=== PATIENT | female | born 1960 | race Caucasian/White ===

== ENCOUNTER → 2017-05-31 | Outpatient (CLI) | payer BC ==
[~2017-05-31] MED LIST: ACET-1966 PO; AMOX-559 PO; CIPR-214 PO; ONDA4TAB97 PO; OXYC-865 PO
--- NOTE | 2017-06-03 09:57 | RADIOLOGY IMAGING REPORT ---
FACILITY: [facility] [place] PATIENT NAME: AZUL BROWN : [id number] MR: [id number] V: [id number] EXAM DATE: ORDERING PHYSICIAN: KEKE DYSON TECHNOLOGIST: Sabina Murphy PROCEDURE:BILATERAL DIGITAL SCREENING MAMMOGRAM WITH CAD ASSISTED INTERPRETATION AND 3D BREAST TOMOSYNTHESIS. COMPARISON:Prior mammograms dated 05/18/16, 03/04/14, 11/20/11 and 10/18/10. INDICATIONS:SCREENING FINDINGS: Mildly heterogeneous fibroglandular tissue is seen throughout the breasts. The parenchymal pattern has remained stable when allowing for difference in mammographic technique and patient positioning. There is no evidence of malignant appearing mass, malignant appearing calcification or other secondary sign of malignancy in either breast. DIAGNOSTIC CATEGORY 1--NEGATIVE. RECOMMENDATIONS: ROUTINE MAMMOGRAM AND CLINICAL EVALUATION. IMPRESSION: BI-RADS 1: No significant abnormality seen. Images were reviewed with R2CAD and 3D breast tomosynthesis. Dictated by: Lina Schaffer M.D. on 05/31/2017 at 14:37 Transcribed by: CAESAR on 06/02/2017 at 20:02 Approved by: Lina Schaffer M.D. on 06/03/2017 at 9:57 [facility]
== END ==
LOC: MAMO 01:10
PROVIDERS: ATTEND Nurse Practitioner Family
DX: Z12.31 Encounter for screening mammogram for malignant neoplasm of breast (principal)
CPT/HCPCS: 77063; 77067

== ENCOUNTER → 2017-11-11 | Outpatient (CLI) | payer BC ==
[~2017-11-11] MED LIST changes: +BUPR-472 PO; +ETON68IM SQ
--- NOTE | 2017-11-11 15:58 | RADIOLOGY IMAGING REPORT ---
FACILITY: [facility] [place] PATIENT NAME: Jennifer Espino : 1960 MR: [id number] V: [id number] EXAM DATE: ORDERING PHYSICIAN: KEKE DYSON TECHNOLOGIST: [place] [facility] [place] Patient: Jennifer Espino : 1960 Visit/Account:[id number] Date of Sevice: 11/11/2017 GALLBLADDER HISTORY: Right upper quadrant pain COMPARISON: None. FINDINGS: Gallbladder: The gallbladder wall is extremely thickened at 10.6 mm with a small amount of pericholec ystic fluid. Also noted is echogenic structure within the gallbladder although no acoustic shadowing . This could represent a nonshadowing stone versus a gallbladder polyp or other mass. There does ap pear to be some vascular flow in this echogenic structure Liver: Negative. Common duct: Normal, 2.3 mm diameter. Pancreas: Partially obscured by bowel, visualized aspects unremarkable. Right kidney: Right kidney appears unremarkable measuring 9.2 cm in length Upper abdominal aorta and IVC: Patent. Ascites: None visualized. IMPRESSION: A bladder wall to extremely thickened at 10.6 mm with small amount of pericholecystic fluid. These f inds are concerning for acute cholecystitis. There is an echogenic nonshadowing structure within the gallbladder which could represent a nonshadow ing stone or possibly a gallbladder mass. There does appear to be some vascular flow No evidence of biliary ductal dilatation Report Dictated By: Lina Schaffer MD at 11/11/2017 3:50 PM Report E-Signed By: Lina Schaffer MD at 11/11/2017 3:54 PM WSN:[email or web address]
== END ==
LOC: US 13:52
PROVIDERS: ATTEND Nurse Practitioner Family
DX: K81.9 Cholecystitis, unspecified (principal)
CPT/HCPCS: 76705

== ENCOUNTER → 2017-11-12 | Outpatient (CLI) | payer BC ==
[2017-11-12 15:54] LABS: PLATELET COUNT, AUTOMATED 236 K/uL (150-450)
== END ==
LOC: LAB 15:39
PROVIDERS: ATTEND Surgery
DX: K82.8 Other specified diseases of gallbladder (principal); R10.11 Right upper quadrant pain
CPT/HCPCS: 36415; 82040; 82247; 82248; 82310; 82374; 82435; 82565; 82947; 83690; 84075; 84132; 84155; 84295; 84450; 84460; 84520; 85025

== ENCOUNTER 2017-11-14 13:04 | Outpatient (RCR) | payer BC ==
[~2017-11-14 13:04] MED LIST changes: +GADOBENATE 529MG/1ML 15ML VIAL IVP ONE; +NS 0.9% 25 ML BAG 50 ML ONE
--- NOTE | 2017-11-15 10:59 | RADIOLOGY IMAGING REPORT ---
FACILITY: [facility] PATIENT NAME: Jennifer Espino : 1960 MR: [id number] V: [id number] EXAM DATE: ORDERING PHYSICIAN: CHENG CUNNINGHAM TECHNOLOGIST: Location: [facility] [place] Patient: Jennifer Espino : 1960 Visit/Account:[id number] Date of Sevice: 11/14/2017 ADDENDUM #1 The moderately distended fluid-filled bowel in the upper abdomen right-sided the abdomen are in fact the duodenum, bulb and second portion and not colon. Report Dictated By: Lina Schaffer MD at 11/15/2017 11:30 AM Report E-Signed By: Lina Schaffer MD at 11/15/2017 11:36 AM ORIGINAL REPORT ABDOMEN W W/O CONTRAST HISTORY: Right upper quadrant pain, questionable gallbladder mass ADDITIONAL HISTORY: The patient first underwent and MRCP with and without contrast on November 14, 2017. The patient returned for repeat study on November 15, 2017 due to extensive motion artifact on the orig inal examination. TECHNIQUE: TECHNIQUE: Multiplanar multisequence magnetic resonance imaging of the abdomen without a nd with intravenous contrast. CONTRAST: 15 mL of MultiHance intravenously on November 14, 2017 and 50 millers of MultiHance intravenou sly on November 15, 2017 COMPARISON: Gallbladder ultrasound November 11, 2017 FINDINGS: Visualized lung bases: Grossly unremarkable. Liver: There is a tiny cyst medial aspect right lobe Gallbladder: The gallbladder is contracted despite n.p.o. status.. No abnormal enhancement is identi fied within the gallbladder. Bile ducts: Nondistended and unremarkable. Spleen: Negative. Adrenal glands: Negative. Pancreas: Negative. Kidneys: Bilateral renal cysts Vessels/spaces/nodes: No bulky adenopathy or ascities. Visualized GI: The cecum, ascending colon and transverse colon appear moderately distended with fluid Bones/soft tissues: Levoconvex scoliosis of the lumbar spine. Tiny umbilical hernia containing fat IMPRESSION: The gallbladder is contracted despite the patient's n.p.o. status. No abnormal enhancement is identi fied within the gallbladder. Small bilateral renal cysts and hepatic cyst The cecum, ascending colon and transverse colon appear moderately distended with fluid likely related to liquid stool. Report Dictated By: Lina Schaffer MD at 11/15/2017 10:36 AM Report E-Signed By: Lina Schaffer MD at 11/15/2017 10:54 AM WSN:[email or web address]
[2017-11-15] MEDS ORDERED: PANT40TA65 PO (13:26)
== END 2017-11-14 18:00 | disposition home or self-care (01) ==
LOC: MRI 13:04
PROVIDERS: ATTEND Surgery
DX: N28.1 Cyst of kidney, acquired (principal); K76.89 Other specified diseases of liver
CPT/HCPCS: 74183; A9577

== ENCOUNTER → 2017-11-18 | Outpatient (CLI) | payer BC ==
[~2017-11-18] MED LIST changes: +BARIUM SULFATE 176 GM BTL PO ONE; +BARIUM SULFATE 340 GM POWD ONE; -GADOBENATE 529MG/1ML 15ML VIAL IVP ONE; -NS 0.9% 25 ML BAG 50 ML ONE; +PANT40TA65 PO
--- NOTE | 2017-11-18 13:15 | RADIOLOGY IMAGING REPORT ---
FACILITY: [facility] PATIENT NAME: Jennifer Espino : 1960 MR: [id number] V: [id number] EXAM DATE: ORDERING PHYSICIAN: CHENG CUNNINGHAM TECHNOLOGIST: Location: [facility] [place] Patient: Jennifer Espino : 1960 Visit/Account:[id number] Date of Sevice: 11/18/2017 Exam type: UPPER GI SERIES W/O AIR History: Nausea vomiting diarrhea intermittently upper abdomen pain, dilated duodenum Comparison: MR the abdomen November 14, 2017. Findings: Double contrast upper GI series was performed with thick and thin barium and air contrast. There is no demonstration of a hiatal hernia. A moderate amount of gastroesophageal reflux was observed altho ugh no evidence of mucosal erosion or esophageal narrowing. The stomach appeared grossly unremarkable. Duodenal bulb was moderately distended with barium. The second portion the duodenum was very distended with contrast. At the junctions of the second and thi rd portions of the duodenum there appear to be a partial obstruction. This is best seen on CT are im ages 13 and 15. There appear to be high-grade narrowing and beaking of the contrast at this junction . The patient was placed in a supine position there was passage of barium into the proximal jejunum which did not appear dilated. Throughout the examination however second portion the duodenum appeare d very distended with barium. Incidentally noted is a diverticulum extending from the third portion of the duodenum The fluoroscopy dose area product was 1581.98 micro-Bowers per meter squared IMPRESSION: 1. Moderate amount of gastroesophageal reflux although no evidence of mucosal erosion or esophageal narrowing The duodenal bulb is moderately distended with barium. The second portion duodenum was very distende d with contrast. At the junction of the second third portions the duodenum there appear to be a part ial obstruction with beaking of the contrast. Some barium did eventually pass into the nondilated je junum. The second portion of the duodenum appears extremely distended throughout the examination. . Report Dictated By: Lina Schaffer MD at 11/18/2017 12:58 PM Report E-Signed By: Lina Schaffer MD at 11/18/2017 1:11 PM WSN:[email or web address]
== END ==
LOC: RAD 07:09
PROVIDERS: ATTEND Surgery
DX: K21.9 Gastro-esophageal reflux disease without esophagitis (principal); K59.8 Other specified functional intestinal disorders
CPT/HCPCS: 74240

== ENCOUNTER 2017-11-21 01:56 | Day surgery (SDC) | payer BC ==
[~2017-11-21] VITALS: Ht 175.3 cm; Wt 79.8 kg
[~2017-11-21 01:56] MED LIST changes: -BARIUM SULFATE 176 GM BTL PO ONE; -BARIUM SULFATE 340 GM POWD ONE
[2017-11-21] MEDS ORDERED: PROPOFOL EMUL(*) 10MG/ML 20 ML 20 ML ONE ×2 (09:14→11:13)
[2017-11-21 09:20] VITALS: BP 145/85
[2017-11-21] MEDS ORDERED: LIDOCAINE/SOD BICARB 8.4% SYR ID ONE (09:45)
[2017-11-21] MEDS ORDERED: NORMOSOL R SOLN(*) 1000 ML BAG 1,000 ML IV PRN (09:45)
[2017-11-21 11:49] VITALS: BP 126/74
--- NOTE | 2017-11-21 12:10 | Short(Outpt) Discharge Summary ---
Discharge Summary Reason for Hosp/Final Diag: (1) Dilation of duodenum Status: Acute Hospital Course & Plan: EGD with biopsies completed without problems. Departure Discharge to: Home, Self Care Discharge Instructions Home Meds Active Scripts Pantoprazole Sodium (PANTOPRAZOLE SODIUM) 40 Mg Tablet.dr, 1 TAB PO DAILY, #30 CAP 0 Refills Prov:CHENG CUNNINGHAM MD 11/15/17 Discontinued Reported Medications Etonogestrel (NEXPLANON) 68 Mg Implant, 68 MG SQ DIRECTED, IMPLANT 11/13/17 Bupropion Hcl (WELLBUTRIN XL) 150 Mg Tab.er.24h, 150 MG PO QDAY, TAB 11/13/17 Follow up Referrals: General Surgery - 11/26/17 @ Surgery, General with Cheng Cunningham Md You have a follow up appointment scheduled with Dr. Cunningham on 11/26/17, at 10:15am. Diet: Regular Activity: As Tolerated Special Instructions: Don't eat or drink anything after midnight tonight so that it might be possible to get a CT of your abdomen and HIDA scan tomorrow. CHENG CUNNINGHAM MD Nov 21, 2017 12:10
[2017-11-21 12:15] VITALS: BP 142/75
--- NOTE | 2017-11-21 14:48 | ULLRICH EGD ---
EVENT DATE: November 21, 2017 ENDOSCOPIST: Scott Price MD ANESTHESIOLOGIST: Evelio Yanez MD ANESTHESIA: TIVA MANAGER CARD: Staff PREPROCEDURAL DIAGNOSIS Dilated duodenum on upper gastrointestinal study with bird beak appearance of the junction of the second and third portions of the duodenum. POSTPROCEDURAL DIAGNOSIS Duodenal diverticulum. PROCEDURE PERFORMED Esophagogastroduodenoscopy with biopsies. COMPLICATIONS None. CONDITION Stable. BLOOD LOSS None. FINDINGS This patient has a very dilated duodenal bulb and second portion of her duodenum. I did not see a bird beak lesion or any neoplastic lesion, but she has a very large duodenal diverticulum at the junction of her second portion of the duodenum and her third portion of her duodenum. There were no ulcers. She did have some mild inflammation in her lower esophagus at the GE junction with some fingers of gastric mucosa extending into the esophagus, and so these were biopsied to rule out Wagner esophagus. INDICATIONS This is a 57-year-old female who was referred to my office after she was having a severe episode of right upper quadrant abdominal pain. A right upper quadrant ultrasound revealed that her gallbladder looked very thickened with a 10 cm thick wall, and there looked to be an intraluminal mass that had some internal blood flow. She was asymptomatic when I saw her in the office, which was just the day after these symptoms occurred which had lasted about four to six hours, and so I ordered an MRCP to get a better idea of her biliary tract. On the MRCP, her duodenum was markedly dilated, and the gallbladder was squished off to the side, but there was no obvious mass or inflammation in the gallbladder. Interestingly, her labs were normal including LFTs and white blood cell count. I then got an upper GI study with barium which revealed a markedly dilated D1 and D2 with a bird beak configuration at D2 and D3 and normal caliber D3 and D4. It took a while for contrast to get into the third portion of the duodenum. With this information, I consented her for an EGD to evaluate this area. DESCRIPTION OF PROCEDURE The patient was brought to the operating room and placed in the left lateral decubitus position on the gurney, and TIVA was administered after a bite block was inserted into her mouth. The endoscope was obtained and tested to ensure it was completely functional and inserted into her mouth through the bite block. Her vocal cords and arytenoids were inspected and were normal. The scope was advanced without problems into her esophagus and advanced all the way through to the junction of the second and third portions of the duodenum. Because of the size of the first and second portions, I could not get the scope to feed into the third portion of the duodenum. I then inspected every part that I could. I did see what appeared to be a duodenal diverticulum coming off the lateral portion of the junction of the second portion and third portion of the duodenum. I could not get into the diverticulum with this scope. I then slowly withdrew the scope. I looked at all mucosal surfaces for any abnormalities. I then removed the upper endoscope from her, and then we switched down to a colonoscope. I advanced that into her mouth and esophagus, and with this scope, I was able to get in all the way to the jejunum, and I inspected the jejunum, the fourth portion, the third portion, and all other aspects of her duodenum. I could get into the diverticulum with this scope as well. I did not see any neoplastic process or inflammation and no ulcerations. I then pulled the scope into the stomach and looked at all surfaces in the stomach. She did have a small hiatal hernia. I then withdrew the scope into the distal esophagus and inspected the GE junction, and there were some fingers of gastric mucosa extending into the esophagus. This was suspicious for Wagner 's, and so I took several bites of the GE junction. I then withdrew the scope through the rest of the esophagus, and the rest of the esophagus appeared unremarkable. I then withdrew the scope from her mouth. She was awakened and brought to the recovery area in good condition having tolerated the procedure without any apparent problems. VIDAL
== END 2017-11-21 12:45 | disposition home or self-care (01) ==
LOC: OR 01:56
PROVIDERS: ATTEND Surgery
DX: K22.70 Barrett's esophagus without dysplasia (principal)
CPT/HCPCS: 43239; 88305; J2704

== ENCOUNTER → 2017-11-22 | Outpatient (CLI) | payer BC ==
[~2017-11-22] MED LIST changes: +IOPAMIDOL 76% 100 ML INFUS BTL 100 ML ONE; +ONDA4TAB9 PO; +TRAM-420 PO
--- NOTE | 2017-11-22 13:53 | RADIOLOGY IMAGING REPORT ---
FACILITY: [facility] PATIENT NAME: Jennifer Espino : 1960 MR: [id number] V: [id number] EXAM DATE: ORDERING PHYSICIAN: CHENG CUNNINGHAM TECHNOLOGIST: Location: [facility] [place] Patient: Jennifer Espino : 1960 Visit/Account:[id number] Date of Sevice: 11/22/2017 HIDA W/CCK HISTORY: duodenal mass TECHNIQUE: 6.1 mCi Tc99m Hepatolite was injected intravenously. Multiple sequential gamma camera melvin ges of the abdomen were obtained for 40 minutes. At that time, Kinevac was injected intravenously and an additional 30 minutes of gamma camera imaging data was acquired. A computer-generated region of i nterest was placed around the gallbladder and time-activity curve for the gallbladder was derived. Th e gallbladder ejection fraction was calculated. COMPARISON: MR the abdomen November 14, 2017] upper GI series November 18, 2017 and gallbladder [facility] FINDINGS: Liver uptake and excretion: Unremarkable. Time to appearance: Bile ducts: 8 minutes. Gallbladder: Equivocally seen at 16 minutes. Duodenum: 19 minutes. Duodenal-gastric reflux / extravasation: There appeared to be a large amount of reflux into the duode num Post IV Kinevac: Due to patient's unusual anatomy and very distended duodenal bulb, second portion the duodenum and duodenal diverticulum localization of the gallbladder with confidence was somewhat difficult. A rig ht lateral view was obtained with a gamma camera demonstrating a small focal outpouching of isotope u ptake anterior to what is likely the duodenum. This area was targeted as the probable gallbladder fo r the gallbladder ejection fraction. Patient symptoms: Ejection fraction = 83% (normal range >35%). If the region of interest is in fact the gallbladd er IMPRESSION: Please see above discussion Report Dictated By: Lina Schaffer MD at 11/22/2017 1:43 PM Report E-Signed By: Lina Schaffer MD at 11/22/2017 1:49 PM WSN:[email or web address]
--- NOTE | 2017-11-22 14:26 | RADIOLOGY IMAGING REPORT ---
FACILITY: [facility] [place] PATIENT NAME: Jennifer Espino : 1960 MR: [id number] V: [id number] EXAM DATE: ORDERING PHYSICIAN: CHENG CUNNINGHAM TECHNOLOGIST: Location: [facility] Patient: Jennifer Espino : 1960 Visit/Account:[id number] Date of Sevice: 11/22/2017 ABDOMEN/PELVIS W/WO CONTRAST HISTORY: Dilated duodenum, gallbladder mass TECHNIQUE: Axial images acquired through the abdomen/pelvis both with and without IV contrast.. Marguerite nal and sagittal reformatting also performed. Dose Lowering Technique One of the following dose optimization techniques was utilized in the performance of this exam: Autom ated exposure control; adjustment of the mA and/or kV according to the patient's size; or use of an i terative reconstruction technique. Specific details can be referenced in the facility's radiology C T exam operational policy. CONTRAST: 75 mL Isovue-370 COMPARISON: MR the abdomen November 14, 2017, HIDA scan today Upper GI series November 18, 2017 and gallbladder ultrasound November 11, 2017 FINDINGS: Visualized lung bases: Negative. Hepatobiliary: The liver appears grossly unremarkable. What appears to be the gallbladder appears t o be severely compressed in the gallbladder fossa by a very large duodenal diverticulum reducing extr insic mass effect on its medial border hyperdense material within the gallbladder may represent stone s. The biliary tree does not appear dilated Spleen: Negative. Adrenals: Negative. Pancreas: Negative. Kidneys ureters and bladder: Subcentimeter hypodensities in both kidneys are too small to characteriz e Genitalia: Numerous artifacts from dense barium in the distal colon somewhat limits evaluation of th e pelvic structures GI: There Is very dense barium in the colon from the hepatic flexure to the rectum producing numerous artifacts. There is a very large diverticulum projecting from the third portion of the duodenum and extends medi ally to produce extrinsic mass effect on the duodenal bulb and second portion the duodenum. This div erticulum measures 7.5 x 9 x 5.8 cm contains a large air-fluid level . There appear to be several b ubbles of air either just within the diverticulum or within the diverticulum wall could be related to the recent endoscopy may There is a small hiatal hernia and mild thickening along the posterior wall of the gastric fundus Vessels/spaces/nodes: Negative. Bones/soft tissues: There is a small umbilical hernia containing fat. Levoconvex scoliosis of the l umbar spine with mild spondylotic changes Additional findings: None pertinent. IMPRESSION: There is a very large diverticulum projecting from the third portion of the duodenum extending medial ly producing extrinsic mass effect from the duodenal bulb and second portion the duodenum and severel y compressing the gallbladder. Hyperdense material within the gallbladder may represent stones Small hiatal hernia and mild thickening along the posterior wall the gastric fundus Small umbilical hernia containing fat Report Dictated By: Lina Schaffer MD at 11/22/2017 2:01 PM Report E-Signed By: Lina Schaffer MD at 11/22/2017 2:21 PM WSN:[email or web address]
== END ==
LOC: CT 07:59
PROVIDERS: ATTEND Surgery
DX: K57.10 Diverticulosis of small intestine without perforation or abscess without bleeding (principal); K44.9 Diaphragmatic hernia without obstruction or gangrene; K82.8 Other specified diseases of gallbladder
CPT/HCPCS: 74178; 78226; A9537; Q9967; J2805

== ENCOUNTER 2017-11-23 05:29 | Emergency (ER) | payer BC ==
[~2017-11-23 05:29] MED LIST changes: -IOPAMIDOL 76% 100 ML INFUS BTL 100 ML ONE; -ONDA4TAB9 PO; -TRAM-420 PO
--- NOTE | 2017-11-23 05:33 | ER Report ---
History and Physical Time Seen By MD: 05:31 HPI/ROS CHIEF COMPLAINT: Right upper quadrant abdominal pain, nausea since approximately 2:30 this morning HISTORY OF PRESENT ILLNESS: Patient is a 57-year-old female here with complaints of right upper quadrant abdominal pain consistent with her gallbladder ongoing pain. Patient has been followed by Dr. Benitez and recently had an EGD with biopsy. She also reports having an MRI, CT imaging of the gallbladder. Patient Tylenol without relief of symptoms. Patient is afebrile at time of evaluation, denies headache, blurred vision, chest pain. She does complain of mild shortness breath, nausea, or quadrant abdominal pain. REVIEW OF SYSTEMS: Constitutional: No fever, no chills. Eyes: No discharge. ENT: No sore throat. Cardiovascular: No chest pain, no palpitations. Respiratory: No cough, + mild shortness of breath. Gastrointestinal: + RUQ abdominal pain, nausea, no vomiting. Genitourinary: No hematuria. Musculoskeletal: No back pain. Skin: No rashes. Neurological: No headache. Allergies: Coded Allergies: No Known Drug Allergies (Unverified , 02/29/16) Home Meds Active Scripts Pantoprazole Sodium (PANTOPRAZOLE SODIUM) 40 Mg Tablet.dr, 1 TAB PO DAILY, #30 CAP 0 Refills Prov:CHENG CUNNINGHAM MD 11/15/17 Discontinued Reported Medications Etonogestrel (NEXPLANON) 68 Mg Implant, 68 MG SQ DIRECTED, IMPLANT 11/13/17 Bupropion Hcl (WELLBUTRIN XL) 150 Mg Tab.er.24h, 150 MG PO QDAY, TAB 11/13/17 Hx Smoking: No Smoking Status: Current: Every Day Smoker Hx Substance Use Disorder: No Hx Alcohol Use: No Constitutional Vital Sign - Last 24 Hours 11/23/17 05:34 Temp 97.9 Pulse 66 Resp 16 B/P (MAP) 143/94 Pulse Ox 98 O2 Delivery Room Air Physical Exam General Appearance: The patient is alert, has no immediate need for airway protection and no signs of toxicity. Moderate distress due to pain Eyes: Pupils equal and round no pallor or injection. ENT, Mouth: Mucous membranes are moist. Respiratory: There are no retractions, lungs are clear to auscultation. Cardiovascular: Regular rate and rhythm. Gastrointestinal: Abdomen is soft and + RUQ tenderness, no masses, bowel sounds normal. Neurological: No focal deficits Skin: Warm and dry, no rashes. Musculoskeletal: Neck is supple non tender. Extremities are nontender, nonswollen and have full range of motion. DIFFERENTIAL DIAGNOSIS: After history and physical exam differential diagnosis was considered for abdominal pain including but not limited to appendicitis, cholecystitis, gastritis and urinary tract infection. Medical Decision Making Data Points Result Diagram: 11/23/17 0602 11/23/17 0602 Laboratory Hematology Test 11/23/17 05:59 11/23/17 06:02 11/23/17 06:30 Whole Blood Glucose 110 mg/DL (75-110) Red Blood Count 5.05 M/uL (4.17-5.56) Mean Corpuscular Volume 88.1 fL (80.0-96.0) Mean Corpuscular Hemoglobin 30.7 pg (26.0-33.0) Mean Corpuscular Hemoglobin Concent 34.8 g/dL (32.0-36.0) Red Cell Distribution Width 13.4 % (11.5-14.5) Mean Platelet Volume 7.1 fL (7.2-11.1) Neutrophils (%) (Auto) 60.3 % (39.4-72.5) Lymphocytes (%) (Auto) 30.5 % (17.6-49.6) Monocytes (%) (Auto) 6.4 % (4.1-12.4) Eosinophils (%) (Auto) 1.9 % (0.4-6.7) Basophils (%) (Auto) 0.9 % (0.3-1.4) Nucleated RBC Relative Count (auto) 0.1 /100WBC Neutrophils # (Auto) 2.3 K/uL (2.0-7.4) Lymphocytes # (Auto) 1.2 K/uL (1.3-3.6) Monocytes # (Auto) 0.2 K/uL (0.3-1.0) Eosinophils # (Auto) 0.1 K/uL (0.0-0.5) Basophils # (Auto) 0.0 K/uL (0.0-0.1) Nucleated RBC Absolute Count (auto) 0.00 K/uL Sodium Level 138 mmol/L (137-145) Potassium Level 3.6 mmol/L (3.5-5.0) Chloride Level 105 mmol/L (98-107) Carbon Dioxide Level 23 mmol/L (22-31) Blood Urea Nitrogen 11 mg/dl (7-18) Creatinine 0.90 mg/dl (0.52-1.04) Glomerular Filtration Rate Calc > 60.0 Random Glucose 103 mg/dl (75-110) Calcium Level 8.9 mg/dl (8.4-10.2) Total Bilirubin 0.8 mg/dl (0.2-1.3) Aspartate Amino Transf (AST/SGOT) 30 U/L (0-35) Alanine Aminotransferase (ALT/SGPT) 38 U/L (0-56) Alkaline Phosphatase 118 U/L (0-126) Total Protein 6.5 g/dl (6.3-8.2) Albumin 3.7 g/dl (3.5-5.0) Lipase 170 U/L (23-300) Urine Color Yellow Urine Clarity Slightly-cloudy Urine pH 5.0 pH (4.8-9.5) Urine Specific [place] 1.021 Urine Protein Negative mg/dL (NEGATIVE) Urine Glucose (UA) Negative mg/dL (NEGATIVE) Urine Ketones Negative mg/dL (NEGATIVE) Urine Blood Negative (NEGATIVE) Urine Nitrite Negative (NEGATIVE) Urine Bilirubin Negative (NEGATIVE) Urine Urobilinogen Negative mg/dL (0.2-1.9) Urine Leukocyte Esterase Negative (NEGATIVE) Urine RBC None /HPF (0-2/HPF) Urine WBC 1 /HPF (0-5/HPF) Urine Squamous Epithelial Cells Few /LPF (</=FEW) Urine Calcium Oxalate Crystals Many /HPF (NONE) Urine Bacteria Few /HPF (NONE-FEW) Urine Mucus Few /HPF (NONE-FEW) Chemistry Test 11/23/17 05:59 11/23/17 06:02 11/23/17 06:30 Whole Blood Glucose 110 mg/DL (75-110) White Blood Count 3.9 k/uL (4.5-11.0) Red Blood Count 5.05 M/uL (4.17-5.56) Hemoglobin 15.5 g/dL (12.0-16.0) Hematocrit 44.4 % (34.0-47.0) Mean Corpuscular Volume 88.1 fL (80.0-96.0) Mean Corpuscular Hemoglobin 30.7 pg (26.0-33.0) Mean Corpuscular Hemoglobin Concent 34.8 g/dL (32.0-36.0) Red Cell Distribution Width 13.4 % (11.5-14.5) Platelet Count 210 K/uL (150-450) Mean Platelet Volume 7.1 fL (7.2-11.1) Neutrophils (%) (Auto) 60.3 % (39.4-72.5) Lymphocytes (%) (Auto) 30.5 % (17.6-49.6) Monocytes (%) (Auto) 6.4 % (4.1-12.4) Eosinophils (%) (Auto) 1.9 % (0.4-6.7) Basophils (%) (Auto) 0.9 % (0.3-1.4) Nucleated RBC Relative Count (auto) 0.1 /100WBC Neutrophils # (Auto) 2.3 K/uL (2.0-7.4) Lymphocytes # (Auto) 1.2 K/uL (1.3-3.6) Monocytes # (Auto) 0.2 K/uL (0.3-1.0) Eosinophils # (Auto) 0.1 K/uL (0.0-0.5) Basophils # (Auto) 0.0 K/uL (0.0-0.1) Nucleated RBC Absolute Count (auto) 0.00 K/uL Glomerular Filtration Rate Calc > 60.0 Calcium Level 8.9 mg/dl (8.4-10.2) Total Bilirubin 0.8 mg/dl (0.2-1.3) Aspartate Amino Transf (AST/SGOT) 30 U/L (0-35) Alanine Aminotransferase (ALT/SGPT) 38 U/L (0-56) Alkaline Phosphatase 118 U/L (0-126) Total Protein 6.5 g/dl (6.3-8.2) Albumin 3.7 g/dl (3.5-5.0) Lipase 170 U/L (23-300) Urine Color Yellow Urine Clarity Slightly-cloudy Urine pH 5.0 pH (4.8-9.5) Urine Specific [place] 1.021 Urine Protein Negative mg/dL (NEGATIVE) Urine Glucose (UA) Negative mg/dL (NEGATIVE) Urine Ketones Negative mg/dL (NEGATIVE) Urine Blood Negative (NEGATIVE) Urine Nitrite Negative (NEGATIVE) Urine Bilirubin Negative (NEGATIVE) Urine Urobilinogen Negative mg/dL (0.2-1.9) Urine Leukocyte Esterase Negative (NEGATIVE) Urine RBC None /HPF (0-2/HPF) Urine WBC 1 /HPF (0-5/HPF) Urine Squamous Epithelial Cells Few /LPF (</=FEW) Urine Calcium Oxalate Crystals Many /HPF (NONE) Urine Bacteria Few /HPF (NONE-FEW) Urine Mucus Few /HPF (NONE-FEW) Urinalysis Test 11/23/17 06:30 Urine Color Yellow Urine Clarity Slightly-cloudy Urine pH 5.0 pH (4.8-9.5) Urine Specific [place] 1.021 Urine Protein Negative mg/dL (NEGATIVE) Urine Glucose (UA) Negative mg/dL (NEGATIVE) Urine Ketones Negative mg/dL (NEGATIVE) Urine Blood Negative (NEGATIVE) Urine Nitrite Negative (NEGATIVE) Urine Bilirubin Negative (NEGATIVE) Urine Urobilinogen Negative mg/dL (0.2-1.9) Urine Leukocyte Esterase Negative (NEGATIVE) Urine RBC None /HPF (0-2/HPF) Urine WBC 1 /HPF (0-5/HPF) Urine Squamous Epithelial Cells Few /LPF (</=FEW) Urine Calcium Oxalate Crystals Many /HPF (NONE) Urine Bacteria Few /HPF (NONE-FEW) Urine Mucus Few /HPF (NONE-FEW) ED Course/Re-evaluation ED Course Patient is a 57-year-old female here with complaints of right upper quadrant abdominal pain, currently being evaluated by Dr. Benitez for gallbladder dysfunction. Patient just had a CT scan and a HIDA scan yesterday of the gallbladder. Patient reports acute onset of worsening pain through the course of the night since 2:30 which was not alleviated by Tylenol. Labs were checked and were unremarkable. Since recent imaging studies were completed(HIDA, MRI, CT ), repeat imaging modalities were deferred at this time. Patient was given fluids, antiemetics, analgesia with significant relief of symptoms. Labs were unremarkable. UA showed no signs of infection. She was given a dose of Toradol for further pain treatment. Depart Departure Latest Vital Signs Vital Signs Date Time Temp Pulse Resp B/P (MAP) Pulse Ox O2 Delivery O2 Flow Rate FiO2 11/23/17 05:34 97.9 66 16 143/94 98 Room Air Impression: Primary Impression: Abdominal pain Condition: Improved Disposition: HOME OR SELF-CARE Referrals: KEKE DYSON (PCP) New Scripts Tramadol Hcl (TRAMADOL HCL) 50 Mg Tablet 50 MG PO Q6H Y for PAIN, #12 TAB 0 Refills Prov: ETHAN TRAVIS DO 11/23/17 Ondansetron (ONDANSETRON ODT) 4 Mg Tab.rapdis 4 MG PO Q12H for 10 Days, #20 TAB Prov: ETHAN TRAVIS DO 11/23/17 Patient Instructions: Abdominal Pain (ED), Acute Nausea and Vomiting (ED) Additional Instructions: You may take 1 tablet of tramadol as needed for pain every 8 hours. You may take 1 tablet of Zofran every 6-8 hours as needed for nausea. Please follow-up with Dr. lujan to continue your ongoing evaluation for abdominal pain. Please return promptly if you develop worsening pain, nausea, difficulty tolerating oral intake, fevers or chills. Problem Qualifiers Primary Impression: Abdominal pain Abdominal location: right upper quadrant Qualified Codes: R10.11 - Right upper quadrant pain ETHAN TRAVIS DO Nov 23, 2017 05:33
[2017-11-23] MEDS ORDERED: NS(*) 0.9% 1000 ML BAG 1,000 ML IV ONE (05:42)
[2017-11-23] MEDS ORDERED: fentaNYL CITR 100 MCG/2 ML AMP IVP ONE (05:45)
[2017-11-23] MEDS ORDERED: ONDANSETRON 4 MG/2 ML VIAL IVP ONE (05:45)
[2017-11-23 06:18] LABS: PLATELET COUNT, AUTOMATED 210 K/uL (150-450)
[2017-11-23] MEDS ORDERED: KETOROLAC 30 MG/ML VIAL IVP ONE (06:55)
[2017-11-23] MEDS ORDERED: ONDA4TAB9 PO (06:58)
[2017-11-23] MEDS ORDERED: TRAM-420 PO (06:58)
[2017-11-23 07:00] VITALS: BP 139/83
== END 2017-11-23 07:16 | disposition home or self-care (01) ==
LOC: ER 05:33
DX: R10.11 Right upper quadrant pain (principal); F17.210 Nicotine dependence, cigarettes, uncomplicated
CPT/HCPCS: 36416; 81001; 82948; 83690; 85025; 87088; 96361; 96374; 96375; 99284; J1885; J2405; J3010; J7030; 82040; 82247; 82310; 82374; 82435; 82565; 82947; 84075; 84132; 84155; 84295; 84450; 84460; 84520

== ENCOUNTER 2017-11-24 17:15 | Inpatient (IN) | payer BC ==
[~2017-11-24] VITALS: Ht 175.3 cm; Wt 79.4 kg
[~2017-11-24 17:15] MED LIST changes: -DOCU-202 PO; -PER PO
--- NOTE | 2017-11-24 17:28 | ER Report ---
History and Physical Time Seen By MD: 17:27 Hx. of Stated Complaint: PT WAS IN ER LAST NIGHT, STATES WAS COMFORTABLE WHEN SHE WENT TO BED AT 2200 LAST NIGHT. PT ATE POP TART AT NOON TODAY WAS OK. AROUND 3PM PT TOOK ZOFRAN AND TRAMADOL. AROUND 4PM PAIN WAS INCREASING "ABOVE AND BELOW BELLY BUTTON" PT WAS GIVEN 100MCG OF FENT WITH EMS AND 4MG ZOFRAN. PT RATING PAIN A 5/10 AFTER THE PAIN MEDICATIOIN HPI/ROS CHIEF COMPLAINT: Abdominal pain HISTORY OF PRESENT ILLNESS: This is a 57-year-old female who presents to the emergency department via EMS for abdominal pain. Patient was evaluated in the ED last night and discharged home for abdominal pain, patient states she did better when she went home and felt okay this morning, had a pop hard around noon and then developed some increased abdominal pain this afternoon. Patient states she's had this abdominal pain for about 2 weeks has been evaluated by her primary care provider sent a sound MRCP, CT and ultrasound, has been evaluated by Dr. Benitez. Patient did receive 50 g IV fentanyl, 4 mg IV Zofran and round. Patient states the pain is "okay right now". Patient denies aches or chills at this time underlying nausea seems to be tolerable according to the patient. No chest pain or shortness of breath, no headaches no rashes, no visual changes. REVIEW OF SYSTEMS: Constitutional: No fever, no chills. Eyes: No discharge. ENT: No sore throat. Cardiovascular: No chest pain, no palpitations. Respiratory: No cough, no shortness of breath. Gastrointestinal: As above. Genitourinary: No hematuria. Musculoskeletal: No back pain. Skin: No rashes. Neurological: No headache. Allergies: Coded Allergies: No Known Drug Allergies (Unverified , 02/29/16) Home Meds Active Scripts Tramadol Hcl (TRAMADOL HCL) 50 Mg Tablet, 50 MG PO Q6H Y for PAIN, #12 TAB 0 Refills Prov:ETHAN TRAVIS DO 11/23/17 Ondansetron (ONDANSETRON ODT) 4 Mg Tab.rapdis, 4 MG PO Q12H for 10 Days, #20 TAB Prov:ETHAN TRAVIS DO 11/23/17 Pantoprazole Sodium (PANTOPRAZOLE SODIUM) 40 Mg Tablet.dr, 1 TAB PO DAILY, #30 CAP 0 Refills Prov:CHENG CUNNINGHAM MD 11/15/17 Discontinued Reported Medications Etonogestrel (NEXPLANON) 68 Mg Implant, 68 MG SQ DIRECTED, IMPLANT 11/13/17 Bupropion Hcl (WELLBUTRIN XL) 150 Mg Tab.er.24h, 150 MG PO QDAY, TAB 11/13/17 Past Medical/Surgical History Patient has a past medical surgical history of migraines, PVCs, recently having GI symptoms with severe abdominal pain, urinary tract infections, wears glasses , nasal polyp removed. Reviewed Nurses Notes: Yes Hx Smoking: No Smoking Status: Current: Every Day Smoker Hx Substance Use Disorder: No Hx Alcohol Use: No Constitutional Vital Sign - Last 24 Hours 11/24/17 11/24/17 11/24/17 17:15 17:30 18:00 Temp 97.3 Pulse 85 79 Resp 85 B/P (MAP) 131/70 117/71 (86) 130/70 (90) Pulse Ox 95 89 O2 Delivery Room Air Room Air Physical Exam General Appearance: The patient is alert, has no immediate need for airway protection and no signs of toxicity. Eyes: Pupils equal and round no pallor or injection. ENT, Mouth: Mucous membranes are moist. Respiratory: There are no retractions, lungs are clear to auscultation. Cardiovascular: Regular rate and rhythm, no murmurs, clicks or rubs. Gastrointestinal: Abdomen is soft, tenderness to the gray-umbilical area with increased tenderness to the epigastrium, hypoactive bowel sounds. No masses. No abdominal bruits. Neurological: Alert and oriented 4. Moving all extremities. Following all commands. No focal neuro deficits. Skin: Warm and dry, no rashes. Musculoskeletal: Neck is supple non tender. Extremities are nontender, nonswollen and have full range of motion. DIFFERENTIAL DIAGNOSIS: After history and physical exam differential diagnosis was considered for abdominal pain including but not limited to appendicitis, cholecystitis, gastritis and urinary tract infection.abdominal pain in a female including but not limited to ovarian cyst, pelvic inflammatory disease, ovarian torsion, urinary tract infection, and appendicitis. Medical Decision Making ED Course/Re-evaluation Clinical Indication for ER IV: Hydration, IV Access ED Course The patient was admitted to room. History and physical obtained. Differential diagnoses were considered. An IV was started via EMS. After my exam I did contact Dr. Benitez as noted below. Dr. Benitez has agreed to admit the patient for pain control and reevaluate her tomorrow which would include another ultrasound of the right upper quadrant, looking at the duodenal diverticuli. The patient is in agreement with this plan of care and admitted to the medical floor. Patient was given a 1 L normal saline bolus and 50 g IV fentanyl in the emergency department. 11/24/2017 5:55:31 pm I did speak with Dr. Benitez regarding the patient's case , he is aware of her history and is willing to admit her to the hospital at this time for pain control and repeat ultrasound and blood work tomorrow. The patient is in agreement with this plan of care. Decision to Disposition Date: Nov 24, 2017 Decision to Disposition Time: 17:54 Depart Departure Latest Vital Signs Vital Signs Date Time Temp Pulse Resp B/P (MAP) Pulse Ox O2 Delivery O2 Flow Rate FiO2 11/24/17 18:00 130/70 (90) 11/24/17 17:30 79 89 Room Air 11/24/17 17:15 97.3 85 Impression: Primary Impression: Abdominal pain Additional Impression: Inadequate pain control Condition: Improved Disposition: Admitted from ER Referrals: KEKE DYSON (PCP) Problem Qualifiers Primary Impression: Abdominal pain Abdominal location: epigastric Qualified Codes: R10.13 - Epigastric pain [facility]- Nov 24, 2017 17:28
[2017-11-24] MEDS ORDERED: fentaNYL CITR 100 MCG/2 ML AMP IVP ONE (17:55)
[2017-11-24] MEDS ORDERED: NS(*) 0.9% 1000 ML BAG 1,000 ML IV ONE (17:55)
[2017-11-24] MEDS ORDERED: HYDROmorphone PCA 6 MG/30 ML IV PRN (18:00)
[2017-11-24] MEDS ORDERED: ACETAMINOPHEN(*)1000 MG/100 ML 100 ML IVPB SCH (18:00)
[2017-11-24] MEDS ORDERED: NALOXONE HCL 0.4 MG/ML VIAL IVP PRN (18:00)
[2017-11-24] MEDS ORDERED: PROMETHAZINE 25 MG/ML 1 ML AMP IVP PRN (18:00)
[2017-11-24] MEDS ORDERED: FLUSH 10 ML SYR IVP PRN (18:00)
[2017-11-24] MEDS ORDERED: ONDANSETRON 4 MG/2 ML VIAL IVP PRN (18:00)
[2017-11-24 18:29] VITALS: BP 134/79
[2017-11-24 23:50] VITALS: BP 104/59
[2017-11-25 06:20] LABS: PLATELET COUNT, AUTOMATED 178 K/uL (150-450)
[2017-11-25 07:08] VITALS: BP 96/53
[2017-11-25] MEDS: PANTOPRAZOLE SOD 40 MG IV VIAL IVP SCH (08:28)
--- NOTE | 2017-11-25 10:00 | Gen Surgery History & Physical ---
History of Present Illness Chief Complaint Upper abdominal pain History of Present Illness 57-year-old female, well-known to me as I have been working her up over the last couple weeks for upper abdominal pain. She had a severe episode of upper abdominal pain that lasted about 6 hours 2 weeks ago. Her PCM ordered a right upper quadrant ultrasound which revealed a thickened gallbladder wall at 10 mm with echogenic material within the lumen of the gallbladder but also something suspicious for a gallbladder mass with internal Doppler flow. To look for a gallbladder neoplasm, I ordered an MRI which revealed a massively dilated duodenum with an apparent transition point at the junction of D2 and D3. I then got an upper GI study which also revealed a massively dilated duodenal bulb and 2nd part of her duodenum with decompression and D3. I then did an upper GI endoscopy which again revealed a massively dilated D1 and D2 but I could easily pass a colonoscope all the way into the jejunum with no obstruction. She did have a large duodenal diverticulum at the junction of D2 and 3 and a smaller adjacent duodenal diverticulum in this area as well. There did not appear to be any obstruction, there was no retained food in her duodenum. I then ordered a HIDA scan but it was difficult to see her gallbladder. They did do a CCK injection which had a reported ejection fraction of 85% but it was unclear whether there were seen in the duodenum or her gallbladder and a CT scan of her abdomen revealed a large duodenal diverticulum, and the adjacent smaller duodenal diverticulum, and the large duodenal diverticulum was pushing the gallbladder out laterally. The gallbladder appeared grossly unremarkable other than some echogenic material within the gallbladder lumen. She had been asymptomatic since her initial presenting abdominal pain. She was eating without any obstructive symptoms, no regurgitation or bloating, no early satiety. 2 days ago she had worsening epigastric abdominal pain and came into the emergency room but workup at that time, which mainly consisted of labs since she just had the the CT scan completed the day before, was unremarkable. She was sent home as her symptoms were not too severe and came back yesterday with worsening symptoms. I have accepted her for admission. Her pain is mostly in the epigastric midline. No nausea or vomiting. Her pain has not resolved this morning but is decreased. No fevers or chills. No jaundice, choleuria, or stearrhea. History Home Meds Active Scripts Tramadol Hcl (TRAMADOL HCL) 50 Mg Tablet, 50 MG PO Q6H Y for PAIN, #12 TAB 0 Refills Prov:ETHAN TRAVIS DO 11/23/17 Ondansetron (ONDANSETRON ODT) 4 Mg Tab.rapdis, 4 MG PO Q12H for 10 Days, #20 TAB Prov:ETHAN TRAVIS DO 11/23/17 Pantoprazole Sodium (PANTOPRAZOLE SODIUM) 40 Mg Tablet.dr, 1 TAB PO DAILY, #30 CAP 0 Refills Prov:CHENG CUNNINGHAM MD 11/15/17 Discontinued Reported Medications Etonogestrel (NEXPLANON) 68 Mg Implant, 68 MG SQ DIRECTED, IMPLANT 11/13/17 Bupropion Hcl (WELLBUTRIN XL) 150 Mg Tab.er.24h, 150 MG PO QDAY, TAB 11/13/17 Allergies: Coded Allergies: No Known Drug Allergies (Unverified , 02/29/16) Review of Systems All Systems Reviewed/Normal: Yes, Except as Noted Gastrointestinal: Abdominal Pain Exam General Appearance: Alert, Awake, No Acute Distress, Afebrile Neuro: No Gross deficits Eyes: PERRLA GI: Other (soft, nondistended, epigastric tenderness to palpation) Extremities: Warm, Perfused Medical Decision Making Data Points Result Diagram: 11/25/17 0543 11/25/17 0543 Assessment and Plan Problems: (1) Abdominal pain Status: Acute Assessment & Plan: 11/25/17: Patient has pancreatitis that I presume is a gallstone pancreatitis. It is fairly mild at this point. Also a possibility, she can have intermittent biliary and pancreatic obstruction due to the duodenal diverticulum. Duodenal diverticuli are in general asymptomatic and not problematic. After reviewing all of her previous studies with the radiologist, she has recommended a repeat right upper quadrant ultrasound now that we are aware of the large diverticulum so she can get a good look at the gallbladder as the previous ultrasound, in hindsight, it is uncertain whether the diverticulum was being observed over the actual gallbladder. We need to let the pancreatitis settled down and so I will keep her on bowel rest and IV fluids with pain control with a POT LINER today. We'll repeat the right upper quadrant ultrasound today. I will see her this afternoon. We will plan on surgical intervention here in the next day or 2 in the pancreatitis improves. I have explained this plan to the patient in detail and she seems to understand and seems to be agreeable with this plan. (2) Pancreatitis, gallstone Status: Acute (3) Cholelithiasis Status: Chronic (4) Elevated LFTs Status: Acute (5) Diverticulosis of duodenum without diverticulitis Status: Chronic Condition Stable Time Spent: < 30 min Venous Thromboembolism VTE Risk Physician Assess for VTE Risk: Yes Patient's VTE Risk: Low VTE Diagnostic Test 2 Days Prior to Admit: No Antithrombotics Is Pt On Any Antithrombotics?: No Problem Qualifiers (1) Abdominal pain: Abdominal location: epigastric Qualified Codes: R10.13 - Epigastric pain (2) Cholelithiasis: Cholelithiasis location: gallbladder Cholecystitis presence: without cholecystitis Biliary obstruction: with biliary obstruction Qualified Codes: K80.21 - Calculus of gallbladder without cholecystitis with obstruction CHENG CUNNINGHAM MD Nov 25, 2017 09:59
[2017-11-25 10:58] VITALS: BP 101/57
--- NOTE | 2017-11-25 13:01 | Medical Nutrition Therapy ---
Nutrition Anthropometrics Height (Inches): 69.00 Height (Calculated Centimeters: 175.824073 Weight (Pounds): 175 Weight (Calculated Kilograms): 79.379 [place] Nutrition Score: Adequate [place] Nutrition Risk Score: 21 Dietary Referral Nutrition Risk Factors: Nutrition Risk Comment: Physical Findings Physical Appearance: Overweight BMI 25-29 Skin Appearance Skin Appearance: Edema Edema Location Modifier: Edema Location: Type of Edema: Degree of Edema: Gastrointestinal Symptoms GI Symtoms: Tube Present: Bowel Sounds: Recent Bowel Pattern: Stool Characteristics: Nutritional Diagnosis Nutritional Risk Acuity 2: Pancreatitis Nutritional Acuity: 2-Moderate Nutrition Diagnosis: Altered GI Function Nutrition Etiology: Physiological Causes Nutrition Problem/Etiology/Sym: r/t pancreatitis AEB lipase 2683 Energy Requirement: 1885 (M-- StJ) Protein Requirement: 87 (1.1g,/kg) Fluid Requirement: 2370 (30ml/kg) Diet Type: NPO (Nothing by Mouth) Nutrition Intervention: Incr diet as tolerated Nutrition Monitoring & Eval Nutrition Goals: Eat 75-100% Meal, Drink > 2 liters/day RD Patient Assessment Time: [address] Assessment Type: RD Assessment Patient Nutrition Acuity: 2-Moderate Follow Up Date: Nov 28, 2017 Nutritional Comment: 7/ Pt admitted for pancretitis. Lipase 2683, alb 3. Pt reporting nausea. Pt is currently NPO. Will cont to monitor. ELISE ALEXANDRE Nov 25, 2017 13:01
--- NOTE | 2017-11-25 13:29 | RADIOLOGY IMAGING REPORT ---
FACILITY: [facility] [place] PATIENT NAME: Jennifer Espino : 1960 MR: [id number] V: [id number] EXAM DATE: ORDERING PHYSICIAN: CHENG CUNNINGHAM TECHNOLOGIST: Location: [facility] Patient: Jennifer Espino : 1960 Visit/Account:[id number] Date of Sevice: 11/25/2017 LIVER HISTORY: Right upper quad pain COMPARISON: CT abdomen pelvis November 22, 2017 HIDA scan November 22, 2017, upper GI series November 18, 2017, MR the abdomen November 14, 2017, gallbladder ultrasound November 11, 2017 FINDINGS: Gallbladder: There are multiple layering stones seen within the gallbladder most appear tiny although there is one stone measuring 4 mm in diameter. No evidence of an enhancing mass within the gallblad roberta. The gallbladder wall does not appear thickened. Liver: Negative. Common duct: Normal, 4.4 mm diameter. Pancreas: Pancreas appears unremarkable. Others no evidence of peripancreatic inflammation. The lara creatic duct does not appear dilated. Right kidney: Right kidney appears unremarkable measures 9.5 cm in length Upper abdominal aorta and IVC: Patent. Ascites: None visualized. IMPRESSION: Cholelithiasis although no evidence of gallbladder wall thickening, gallbladder mass or biliary ducta l dilatation .Pancreas appears unremarkable Report Dictated By: Lina Schaffer MD at 11/25/2017 1:22 PM Report E-Signed By: Lina Schaffer MD at 11/25/2017 1:25 PM WSN:[email or web address]
[2017-11-25 14:49] VITALS: BP 103/60
[2017-11-25 18:36] VITALS: BP 127/52
[2017-11-25 19:44] VITALS: BP 108/77
[2017-11-25 23:11] VITALS: BP 112/64
[2017-11-26 04:23] VITALS: BP 118/68
[2017-11-26 06:33] LABS: PLATELET COUNT, AUTOMATED 203 K/uL (150-450)
[2017-11-26 07:07] VITALS: BP 110/57
--- NOTE | 2017-11-26 08:31 | General Surgery Progress Note ---
Subjective Progress Notes Subjective No new complaints. Still with epigastric pain, maybe improving? Physical Exam Vital Signs Date Time Temp Pulse Resp B/P (MAP) Pulse Ox O2 Delivery O2 Flow Rate FiO2 11/26/17 07:17 16 95 11/26/17 07:14 Room Air 11/26/17 07:07 98.6 65 110/57 (74) 11/25/17 18:36 2.0 General Appearance: Alert, Awake, No Acute Distress, Afebrile GI: Other (Soft, epigastric TTP, no palpable mass, no peritoneal signs.) Extremities: Warm, Perfused Result Diagram: 11/26/17 0537 11/26/17 0537 Assessment and Plan Problems: (1) Abdominal pain Status: Acute Assessment & Plan: 11/25/17: Patient has pancreatitis that I presume is a gallstone pancreatitis. It is fairly mild at this point. Also a possibility, she can have intermittent biliary and pancreatic obstruction due to the duodenal diverticulum. Duodenal diverticuli are in general asymptomatic and not problematic. After reviewing all of her previous studies with the radiologist, she has recommended a repeat right upper quadrant ultrasound now that we are aware of the large diverticulum so she can get a good look at the gallbladder as the previous ultrasound, in hindsight, it is uncertain whether the diverticulum was being observed over the actual gallbladder. We need to let the pancreatitis settled down and so I will keep her on bowel rest and IV fluids with pain control with a NANOTECHNOLOGIST today. We'll repeat the right upper quadrant ultrasound today. I will see her this afternoon. We will plan on surgical intervention here in the next day or 2 in the pancreatitis improves. I have explained this plan to the patient in detail and she seems to understand and seems to be agreeable with this plan. 11/26/17: Some improvement in pain but still present. LFTs improving. Lipase the same. Will continue clear diet and IV fluids today. Will recheck labs tomorrow and if improving then will plan on lap marga tomorrow. I have explained this plan to the patient and the reasoning behind it. I will not plan on addressing the duodenal diverticuli during this surgery as I suspect her problem is that she's passing stones from her gallbladder through her CBD which has led to her pancreatitis and since duodenal diverticuli are general asymptomatic. She is at high risk of needing to convert to open surgery to remove her gallbladder. She is also at increased risk of duodenal injury since D1 and D2 and the diverticuli are against her gallbladder and pushing it laterally and likely, at least in part, "in the way." She indicates her understanding of this discussion and seems agreeable with this plan. (2) Pancreatitis, gallstone Status: Acute (3) Cholelithiasis Status: Chronic (4) Elevated LFTs Status: Acute (5) Diverticulosis of duodenum without diverticulitis Status: Chronic Condition Stable. Time Spent: < 30 min Exam Sepsis Risk: No Definite Risk Problem Qualifiers (1) Abdominal pain: Abdominal location: epigastric Qualified Codes: R10.13 - Epigastric pain (2) Cholelithiasis: Cholelithiasis location: gallbladder Cholecystitis presence: without cholecystitis Biliary obstruction: with biliary obstruction Qualified Codes: K80.21 - Calculus of gallbladder without cholecystitis with obstruction CHENG CUNNINGHAM MD Nov 26, 2017 08:31
[2017-11-26] MEDS: PANTOPRAZOLE SOD 40 MG IV VIAL IVP SCH (08:50)
[2017-11-26] MEDS: NS(*) 0.9% 1000 ML BAG 1,000 ML IV PRN ×2 (08:55→17:25)
[2017-11-26 10:54] VITALS: BP 115/69
[2017-11-26 14:23] VITALS: BP 136/71
[2017-11-26] MEDS ORDERED: INDOCYANINE GREEN 25 MG VIAL IVP ONE (14:39)
[2017-11-26 18:55] VITALS: BP 132/92
[2017-11-26 23:38] VITALS: BP 144/91
[2017-11-27] VITALS (19 sets, daily range): BP systolic 98–145; BP diastolic 64–95
[2017-11-27] MEDS: NS(*) 0.9% 1000 ML BAG 1,000 ML IV PRN (01:44)
[2017-11-27 06:15] LABS: PLATELET COUNT, AUTOMATED 210 K/uL (150-450)
[2017-11-27] MEDS ORDERED: NORMOSOL R SOLN(*) 1000 ML BAG 1,000 ML IV ONE ×2 (07:34→12:14)
[2017-11-27] MEDS ORDERED: ROPIVACAINE 0.5% 20 ML VIAL ONE (08:06)
[2017-11-27] MEDS ORDERED: PROPOFOL EMUL(*) 10MG/ML 20 ML 20 ML ONE (08:24)
[2017-11-27] MEDS ORDERED: ONDANSETRON 4 MG/2 ML VIAL ONE (08:24)
[2017-11-27] MEDS ORDERED: METOCLOPRAMIDE 10 MG/2 ML SDV ONE (08:24)
[2017-11-27] MEDS ORDERED: fentaNYL CITR 250 MCG/5 ML AMP ONE (08:24)
[2017-11-27] MEDS ORDERED: DEXAMETHASONE SOD 4 MG/ML VIAL ONE (08:24)
[2017-11-27] MEDS ORDERED: LIDOCAINE MPF 1% 5 ML VIAL ONE (08:24)
--- NOTE | 2017-11-27 08:24 | General Surgery Progress Note ---
Subjective Progress Notes Subjective Pain is gone. She's just hungry this morning. Physical Exam Vital Signs Date Time Temp Pulse Resp B/P (MAP) Pulse Ox O2 Delivery O2 Flow Rate FiO2 11/27/17 07:47 16 94 11/27/17 07:44 Room Air 11/27/17 07:17 97.7 58 136/81 (99) 11/25/17 18:36 2.0 General Appearance: Alert, Awake, No Acute Distress, Afebrile GI: Soft and Non-Tender Extremities: Warm, Perfused Result Diagram: 11/27/1760211/27/17602 Assessment and Plan Problems: (1) Abdominal pain Status: Acute Assessment & Plan: 11/25/17: Patient has pancreatitis that I presume is a gallstone pancreatitis. It is fairly mild at this point. Also a possibility, she can have intermittent biliary and pancreatic obstruction due to the duodenal diverticulum. Duodenal diverticuli are in general asymptomatic and not problematic. After reviewing all of her previous studies with the radiologist, she has recommended a repeat right upper quadrant ultrasound now that we are aware of the large diverticulum so she can get a good look at the gallbladder as the previous ultrasound, in hindsight, it is uncertain whether the diverticulum was being observed over the actual gallbladder. We need to let the pancreatitis settled down and so I will keep her on bowel rest and IV fluids with pain control with a DIE CUTTER OPERATOR today. We'll repeat the right upper quadrant ultrasound today. I will see her this afternoon. We will plan on surgical intervention here in the next day or 2 in the pancreatitis improves. I have explained this plan to the patient in detail and she seems to understand and seems to be agreeable with this plan. 11/26/17: Some improvement in pain but still present. LFTs improving. Lipase the same. Will continue clear diet and IV fluids today. Will recheck labs tomorrow and if improving then will plan on lap marga tomorrow. I have explained this plan to the patient and the reasoning behind it. I will not plan on addressing the duodenal diverticuli during this surgery as I suspect her problem is that she's passing stones from her gallbladder through her CBD which has led to her pancreatitis and since duodenal diverticuli are general asymptomatic. She is at high risk of needing to convert to open surgery to remove her gallbladder. She is also at increased risk of duodenal injury since D1 and D2 and the diverticuli are against her gallbladder and pushing it laterally and likely, at least in part, "in the way." She indicates her understanding of this discussion and seems agreeable with this plan. 11/27/17: Doing better. Labs coming down. Will proceed with cholecystectomy with cholangiogram this morning. Will start laparoscopically, possibly robotically, but may have to convert to laparotomy depending on findings and my ability to keep duodenum and duodenal diverticulum out of harm's way. Pt wishes to proceed with surgery this morning. (2) Pancreatitis, gallstone Status: Acute (3) Cholelithiasis Status: Chronic (4) Elevated LFTs Status: Acute (5) Diverticulosis of duodenum without diverticulitis Status: Chronic Condition Stable. Time Spent: < 30 min Exam Sepsis Risk: No Definite Risk Problem Qualifiers (1) Abdominal pain: Abdominal location: epigastric Qualified Codes: R10.13 - Epigastric pain (2) Cholelithiasis: Cholelithiasis location: gallbladder Cholecystitis presence: without cholecystitis Biliary obstruction: with biliary obstruction Qualified Codes: K80.21 - Calculus of gallbladder without cholecystitis with obstruction CHENG CUNNINGHAM MD Nov 27, 2017 08:24
[2017-11-27] MEDS ORDERED: SUGAMMADEX SOD 200 MG/2 ML SDV ONE (08:30)
[2017-11-27] MEDS ORDERED: IOPAMIDOL 61% 75 ML INFUS BTL 75 ML ONE (08:32)
[2017-11-27] MEDS: PANTOPRAZOLE SOD 40 MG IV VIAL IVP SCH (08:36)
[2017-11-27] MEDS ORDERED: AMPICILLIN/SULBACT (*) 3 GM VL 3 GM in NS(*) 0.9% 100 ML BAG 100 ML IVPB ONE (08:50)
--- NOTE | 2017-11-27 09:44 | Medical Nutrition Therapy ---
Nutrition Anthropometrics Height (Inches): 69.00 Height (Calculated Centimeters: 175.758558 Weight (Pounds): 175 Weight (Calculated Kilograms): 79.379 Grodo Nutrition Score: Adequate Gordo Nutrition Risk Score: 21 Dietary Referral Nutrition Risk Factors: Nutrition Risk Comment: Nutritional Diagnosis Nutritional Risk Acuity 2: Pancreatitis Nutritional Acuity: 2-Moderate Nutrition Diagnosis: Altered GI Function Nutrition Etiology: Physiological Causes Nutrition Problem/Etiology/Sym: r/t pancreatitis AEB lipase 2683 Energy Requirement: 1885 (M-- StJ) Protein Requirement: 87 (1.1g,/kg) Fluid Requirement: 2370 (30ml/kg) Diet Type: NPO (Nothing by Mouth) Nutrition Intervention: Incr diet as tolerated Nutrition Monitoring & Eval RD Patient Assessment Time: [address] Assessment Type: RD Re-Assessment Patient Nutrition Acuity: 2-Moderate Follow Up Date: Nov 30, 2017 Nutritional Comment: 11/25 Pt admitted for pancretitis. Lipase 2683, alb 3. Pt reporting nausea. Pt is currently NPO. Will cont to monitor. BRYANNA 11/27 Pt NPO with cholecyesctomy this morning. Lipase cont elevated but decreased to 674. Alb decreased to 2.9. Pt ate 100% of clear liquid diet prior to surgery. Will cont to monitor. ELISE ALEXANDRE Nov 27, 2017 09:44
[2017-11-27] MEDS ORDERED: fentaNYL CITR 100 MCG/2 ML AMP ONE ×3 (10:32→12:11)
[2017-11-27] MEDS ORDERED: ROCURONIUM BROM 10 MG/ML 10 ML ONE (10:56)
[2017-11-27] MEDS ORDERED: NS(*) 0.9% 1000 ML BAG 1,000 ML IV PRN (11:34)
[2017-11-27] MEDS ORDERED: KETOROLAC 30 MG/ML VIAL ONE (11:37)
[2017-11-27] MEDS ORDERED: HYDROmorphone HCL 2 MG/ML SDV IVP PRN (11:40)
--- NOTE | 2017-11-27 11:48 | Post Operative Progress Note ---
Post Operative Progress Note Date: Nov 27, 2017 Time: 11:37 Surgeon: Dee Dictation number: [id number] Anesthesia: GETA by Dr. Campbell Pre-Op Diagnosis: Gallstone pancreatitis Post-Op Diagnosis: NAVYA Findings: C/W dx, normal IOC Procedure(s): Robotic cholecystectomy with cholangiogram Specimen Removed:(May be N/A): GB and contents Complications: None Fluids: See anesthesia record Estimated Blood Loss: Minimal Date OP Note Dictated: Nov 27, 2017 Time OP Note Dictated: 11:38 CHENG CUNNINGHAM MD Nov 27, 2017 11:48
--- NOTE | 2017-11-27 12:31 | RADIOLOGY IMAGING REPORT ---
FACILITY: [facility] - [place] PATIENT NAME: Jennifer Espino : 1960 MR: [id number] V: [id number] EXAM DATE: ORDERING PHYSICIAN: CHENG CUNNINGHAM TECHNOLOGIST: Location: [facility] [place] Patient: Jennifer Espino : 1960 Visit/Account:[id number] Date of Sevice: 11/27/2017 CHOLANGIOGRAM OPERATIVE Indication: Cholecystectomy. Evaluate bile ducts. Procedure: Fluoroscopic guidance was provided for Dr. Cunningham Fluoroscopy time: DAP 0.141 mGym2 Number of images: An intraoperative cholangiogram of the biliary system Findings: Contrast injected via the cystic duct remanent filled nondilated intrauterine extra hepatic bile ducts. Contrast flows readily into the duodenum. There are no filling defects. IMPRESSION: Normal intraoperative cholangiogram. Report Dictated By: Wilfredo Pina MD at 11/27/2017 12:26 PM Report E-Signed By: Wilfredo Pina MD at 11/27/2017 12:28 PM WSN:[id number]
--- NOTE | 2017-11-27 16:34 | General Surgery Progress Note ---
Subjective Progress Notes Subjective Pt feels well post op. Tolerating clear liquids. Ambulated to the bathroom. Patient Complains of: Respiratory: No: Shortness of Breath Gastrointestinal: Other (Pain is different from preop. Very tolerable), No Nausea, No Vomiting Physical Exam Vital Signs Date Time Temp Pulse Resp B/P (MAP) Pulse Ox O2 Delivery O2 Flow Rate FiO2 11/27/17 15:45 16 94 11/27/17 15:30 66 145/74 (97) Nasal Cannula 1.0 11/27/17 14:30 97.6 Intake and Output 11/28/17 07:00 Intake Total 2840 ml Output Total 700 ml Balance 2140 ml Intake Oral 240 ml IV Total 2600 ml Output Urine Total 700 ml # Voids 3 General Appearance: Alert, Awake, No Acute Distress Neuro: No Gross deficits Respiratory: No Respiratory Distress GI: Soft and Non-Tender (Minimal blood seapage onto OR dressings) Result Diagram: 11/27/17 0603 11/27/17 0603 Assessment and Plan Problems: (1) Abdominal pain Status: Acute Assessment & Plan: 11/25/17: Patient has pancreatitis that I presume is a gallstone pancreatitis. It is fairly mild at this point. Also a possibility, she can have intermittent biliary and pancreatic obstruction due to the duodenal diverticulum. Duodenal diverticuli are in general asymptomatic and not problematic. After reviewing all of her previous studies with the radiologist, she has recommended a repeat right upper quadrant ultrasound now that we are aware of the large diverticulum so she can get a good look at the gallbladder as the previous ultrasound, in hindsight, it is uncertain whether the diverticulum was being observed over the actual gallbladder. We need to let the pancreatitis settled down and so I will keep her on bowel rest and IV fluids with pain control with a MANAGER MEDICAL DEVICE today. We'll repeat the right upper quadrant ultrasound today. I will see her this afternoon. We will plan on surgical intervention here in the next day or 2 in the pancreatitis improves. I have explained this plan to the patient in detail and she seems to understand and seems to be agreeable with this plan. 11/26/17: Some improvement in pain but still present. LFTs improving. Lipase the same. Will continue clear diet and IV fluids today. Will recheck labs tomorrow and if improving then will plan on lap marga tomorrow. I have explained this plan to the patient and the reasoning behind it. I will not plan on addressing the duodenal diverticuli during this surgery as I suspect her problem is that she's passing stones from her gallbladder through her CBD which has led to her pancreatitis and since duodenal diverticuli are general asymptomatic. She is at high risk of needing to convert to open surgery to remove her gallbladder. She is also at increased risk of duodenal injury since D1 and D2 and the diverticuli are against her gallbladder and pushing it laterally and likely, at least in part, "in the way." She indicates her understanding of this discussion and seems agreeable with this plan. 11/27/17: Doing better. Labs coming down. Will proceed with cholecystectomy with cholangiogram this morning. Will start laparoscopically, possibly robotically, but may have to convert to laparotomy depending on findings and my ability to keep duodenum and duodenal diverticulum out of harm's way. Pt wishes to proceed with surgery this morning. 11/27/17: Post OP Robotic Cholecystectomy and IOC. Doing well. Ambulated and tolerated clears. (2) Pancreatitis, gallstone Status: Acute Assessment & Plan: Gallstone pancreatitis: Lipase decreased from 2600 to 670 today (3) Cholelithiasis Status: Chronic Assessment & Plan: 11/27/17: Now post op from cholecystectomy and IOC (4) Elevated LFTs Status: Acute (5) Diverticulosis of duodenum without diverticulitis Status: Chronic Time Spent: < 30 min (Post Op Check) Exam Sepsis Risk: No Definite Risk Problem Qualifiers (1) Abdominal pain: Abdominal location: epigastric Qualified Codes: R10.13 - Epigastric pain (2) Cholelithiasis: Cholelithiasis location: gallbladder Cholecystitis presence: without cholecystitis Biliary obstruction: with biliary obstruction Qualified Codes: K80.21 - Calculus of gallbladder without cholecystitis with obstruction MAYA CLEANING MD Nov 27, 2017 16:34
--- NOTE | 2017-11-27 17:02 | OPERATIVE REPORT 1 ---
EVENT DATE: November 27, 2017 SURGEON: Scott Price MD ANESTHESIOLOGIST: Scott Campbell MD ANESTHESIA: General endotracheal anesthesia. PREOPERATIVE DIAGNOSIS Gallstone pancreatitis. POSTOPERATIVE DIAGNOSIS Gallstone pancreatitis. PROCEDURE PERFORMED Robotic cholecystectomy with intraoperative cholangiogram. COMPLICATIONS None. CONDITION Stable. BLOOD LOSS Minimal. FINDINGS This patient had a normal cholangiogram. Initially, there was a filling defect , but as I continued to flush her contrast, it disappeared. I suspect it was a bubble. Her gallbladder looked mildly inflamed, but no significant inflammation such that impeded the case. SPECIMENS Gallbladder and contents. INDICATIONS This is a 57-year-old female whom actually was referred a couple weeks ago after an episode of right upper quadrant pain that lasted for about six hours. She had a right upper quadrant ultrasound at that time which revealed gallbladder wall thickening at 10 mm and suspicion for an intraluminal mass. She also was noted to have gallstones. To evaluate this gallbladder mass, I got an MRI which revealed markedly dilated first and second portions of the duodenum with apparent transition point at the junction of the second and third portions of the duodenum. I then got an upper GI study which also revealed markedly dilated first and second portions of the duodenum with a transition point, so I did an EGD and again confirmed that she had a markedly dilated first and second portions of her duodenum, but I could easily get a colonoscope through the second and third portions as well as the fourth and even got into the jejunum with no problems. I did not find anything suspicious for a neoplasm or inflammation or even ulcers, but she did have a very large duodenal diverticulum, and I was able to even drive the camera into the diverticulum and look around. It was uncomplicated. With this information, I was going to see her back in the office, and I also got a CT scan and HIDA scan. The HIDA scan was unreliable because we were not sure if we could see the gallbladder on it or the diverticulum, but the CT did not show any evidence of a mass in the liver or elsewhere, and the gallbladder was hard to see because of being pushed out of the way by the duodenum and the duodenal diverticulum. Before I could see her back in the office, she came into the Emergency Room with a recurrence of her right upper quadrant and epigastric abdominal pain, and she was found to have gallstone pancreatitis. We let this cool down, and then she was consented for cholecystectomy. DESCRIPTION OF PROCEDURE The patient was brought to the operating room and placed supine on the operating table. General endotracheal anesthesia was administered, and her abdomen was prepped and draped in a sterile fashion. Timeout was completed, and I injected the infraumbilical skin with 0.5% ropivacaine plain. I made a curvilinear, smiley face type incision in the infraumbilical rim, dissected through the dermis and subcutaneous fat until I identified the midline fascia. I made a vertical incision in the midline fascia, bluntly entered the peritoneal cavity with my finger, and placed two interrupted 0 Vicryl sutures transversely through the vertical fascial defect. I inserted an 8 mm robotic Fawad type port through this wound and secured it in place with sutures. I insufflated the abdomen to a pressure of 15 mmHg and inserted the robotic camera through this port and noticed that I could clearly see the gallbladder which had very mild inflammation, but certainly not very thick as the initial ultrasound suggested. I could also see her dilated duodenum and duodenal diverticulum, and these were a little bit in the way, but easily moved out of the way. I did have the anesthesiologist place an orogastric tube so we could decompress the stomach and duodenum, and this helped tremendously. I then under direct visualization, after having determined that this would be a feasible case done robotically, placed an 8 mm port in the right mid abdomen and two 8 mm ports in the left side of the abdomen. I then placed the angiocatheter in the right upper quadrant in the subcostal margin to prepare for a cholangiogram during this case. Next, the robot was docked and targeted, and instruments were inserted and visually put in position in the right upper quadrant. The patient had been placed prior to docking the robot in reverse Trendelenburg and planed towards her left to move all the viscera away from the right upper quadrant. After the robot was docked and targeted and instruments inserted, I scrubbed out and went to the console. I grasped the fundus of the gallbladder and retracted it towards the patient's right shoulder. This worked to provide excellent exposure as, fortunately, there was a lot of mobility in the liver and the gallbladder so I could raise the infundibulum up above the duodenum and duodenal diverticulum. I used the hook and divided the peritoneum over the infundibulum and up the medial and lateral aspects of the gallbladder, and this served to improve my traction on the infundibulum and open up the critical view. I then used mostly blunt dissection with the hook to strip down the peritoneum and subperitoneal contents over the cystic duct. I used Firefly to identify specifically the cystic duct and also the common bile duct, and also it confirmed that I was well away from the common bile duct. I stripped the peritoneum down over the cystic duct as it was very wide up near the infundibulum, but got down to where it was more narrow closer to the common duct , but still a centimeter or two away from the common bile duct. The cystic artery was very large and, in fact, was almost the size of the cystic duct, and it was stuck to the duct. I was able to tease it away with mostly blunt dissection, but a little bit of electrocautery to remove some of the fibrous tissue between the two structures. After I got these and was clearly around the cystic duct and artery, I clipped the cystic duct at the infundibulum -cystic duct junction, made a ductotomy just distal to the clip, and milked the duct from distal to proximal to remove any debris from the duct. There really was not any, only bile. I then inserted a cholangiogram through the catheter that I had preplaced and then inserted it in through the ductotomy and the cystic duct and clipped it into place. It flushed with no problems with saline. We then completed a cholangiogram, and I confirmed that I was in the cystic duct well away from the common bile duct. I clearly identified the common bile duct, common hepatic duct, and intrabiliary system, and observed contrast flowing into the duodenum without any problems. There was initially a filling defect in the common bile duct, but it disappeared, and so either a stone was pushed into the duodenum, or it was just a bubble, but at the end, the cholangiogram looked normal. I then removed the catheter from the duct and then clipped the duct with two more clips on the common bile duct side of the ductotomy. I then clipped the artery with two clips on the patient's side and one clip on the gallbladder side and then divided the artery and duct between the clips. I then divided the posterior attachment to the gallbladder to separate it from the gallbladder fossa and then placed the gallbladder in a surgical specimen retrieval bag and removed it from the abdomen through the umbilical port site. I then inspected the gallbladder fossa as well as the cystic duct and artery stumps, and there was no bleeding or bile leaks. I then removed all of the robotic instruments, undocked the robot, and the robot was pulled away. I then put in the robotic camera, and then I suctioned, irrigated , and just irrigated and dried the right upper quadrant. The majority of the irrigation fluid and other fluid were removed from that right upper quadrant. I again inspected the gallbladder fossa as well as the cystic duct and artery stumps, and there was no bleeding or bile leaks. I then removed the suction decorator consultant and camera, desufflated the abdomen, removed all the the ports, and then closed the midline fascia with another running 0 Vicryl suture and tied all these down with good reapproximation of the fascial edges. The skin at each port site was closed with 4-0 Monocryl subcuticular sutures. The skin was cleaned and dried, and Steri-Strips were applied, followed by sterile surgical dressings. The patient was awakened, extubated in the operating room, and transported to the recovery room in stable condition having tolerated the procedure without any apparent problems. VIDAL
[2017-11-27] MEDS: DOCUSATE SODIUM 100 MG CAP PO SCH (20:44)
[2017-11-28 05:30] VITALS: BP 131/83
[2017-11-28 05:57] LABS: PLATELET COUNT, AUTOMATED 231 K/uL (150-450)
[2017-11-28] MEDS ORDERED: PER PO (07:24)
[2017-11-28] MEDS ORDERED: DOCU-202 PO (07:24)
[2017-11-28 07:26] VITALS: BP 129/75
--- NOTE | 2017-11-28 07:28 | Short(Outpt) Discharge Summary ---
Discharge Summary Reason for Hosp/Final Diag: (1) Abdominal pain Status: Resolved Hospital Course & Plan: 11/25/17: Patient has pancreatitis that I presume is a gallstone pancreatitis. It is fairly mild at this point. Also a possibility, she can have intermittent biliary and pancreatic obstruction due to the duodenal diverticulum. Duodenal diverticuli are in general asymptomatic and not problematic. After reviewing all of her previous studies with the radiologist, she has recommended a repeat right upper quadrant ultrasound now that we are aware of the large diverticulum so she can get a good look at the gallbladder as the previous ultrasound, in hindsight, it is uncertain whether the diverticulum was being observed over the actual gallbladder. We need to let the pancreatitis settled down and so I will keep her on bowel rest and IV fluids with pain control with a PRESIDENT [employer] CEO today. We'll repeat the right upper quadrant ultrasound today. I will see her this afternoon. We will plan on surgical intervention here in the next day or 2 in the pancreatitis improves. I have explained this plan to the patient in detail and she seems to understand and seems to be agreeable with this plan. 11/26/17: Some improvement in pain but still present. LFTs improving. Lipase the same. Will continue clear diet and IV fluids today. Will recheck labs tomorrow and if improving then will plan on lap marga tomorrow. I have explained this plan to the patient and the reasoning behind it. I will not plan on addressing the duodenal diverticuli during this surgery as I suspect her problem is that she's passing stones from her gallbladder through her CBD which has led to her pancreatitis and since duodenal diverticuli are general asymptomatic. She is at high risk of needing to convert to open surgery to remove her gallbladder. She is also at increased risk of duodenal injury since D1 and D2 and the diverticuli are against her gallbladder and pushing it laterally and likely, at least in part, "in the way." She indicates her understanding of this discussion and seems agreeable with this plan. 11/27/17: Doing better. Labs coming down. Will proceed with cholecystectomy with cholangiogram this morning. Will start laparoscopically, possibly robotically, but may have to convert to laparotomy depending on findings and my ability to keep duodenum and duodenal diverticulum out of harm's way. Pt wishes to proceed with surgery this morning. 11/27/17: Post OP Robotic Cholecystectomy and IOC. Doing well. Ambulated and tolerated clears. 11/28/17: POD#1 s/ap robotic marga with gram. Doing well. Pain controlled this morning. Labs improving. Will d/c to home. (2) Pancreatitis, gallstone Status: Resolved Hospital Course & Plan: Gallstone pancreatitis: Lipase decreased from 2600 to 670 today (3) Cholelithiasis Status: Resolved Hospital Course & Plan: 11/27/17: Now post op from cholecystectomy and IOC (4) Elevated LFTs Status: Resolved (5) Diverticulosis of duodenum without diverticulitis Status: Chronic Departure Discharge to: Home, Self Care Discharge Instructions Home Meds Active Scripts Oxycodone/Acetaminophen (OXYCODONE/ACETAMINOPHEN 5MG/325 MG) 5 Mg/325 Mg Tab, 1- 2 TAB PO Q4H Y for PAIN, #30 TAB 0 Refills Prov:CHENG CUNNINGHAM MD 11/28/17 Docusate Sodium (DOCUSATE SODIUM) 100 Mg Capsule, 1 CAP PO BID, #30 CAPSULE 0 Refills Prov:CHENG CUNNINGHAM MD 11/28/17 Tramadol Hcl (TRAMADOL HCL) 50 Mg Tablet, 50 MG PO Q6H Y for PAIN, #12 TAB 0 Refills Prov:ETHAN TRAVIS DO 11/23/17 Ondansetron (ONDANSETRON ODT) 4 Mg Tab.rapdis, 4 MG PO Q12H for 10 Days, #20 TAB Prov:ETHAN TRAVIS DO 11/23/17 Pantoprazole Sodium (PANTOPRAZOLE SODIUM) 40 Mg Tablet.dr, 1 TAB PO DAILY, #30 CAP 0 Refills Prov:CHENG CUNNINGHAM MD 11/15/17 Follow up Referrals: General Surgery - 12/11/17 @ Surgery, General with Cheng Cunningham Md You have a follow up appointment scheduled with Dr. Cunningham on Saturday, December 11, 2017, at 4:30pm. Diet: Regular Activity: As Tolerated Special Instructions: You may remove the white surgical dressings on 11/29/17, then you can shower. After showering, leave the incisions open to air but leave the steristrips in place until they fall off on their own. Do not immerse the incisions for 2 weeks. Problem Qualifiers (1) Abdominal pain: Abdominal location: epigastric Qualified Codes: R10.13 - Epigastric pain (2) Cholelithiasis: Cholelithiasis location: gallbladder Cholecystitis presence: without cholecystitis Biliary obstruction: with biliary obstruction Qualified Codes: K80.21 - Calculus of gallbladder without cholecystitis with obstruction CHENG CUNNINGHAM MD Nov 28, 2017 07:28
[2017-11-28] MEDS: DOCUSATE SODIUM 100 MG CAP PO SCH (08:57)
[2017-11-28 11:31] VITALS: BP 132/74
== END 2017-11-28 12:40 | disposition home or self-care (01) | DRG 418 ==
LOC: ER 17:23 → MED 18:05 → INTOOBSV 18:05 → OBSVTOIN 18:05
PROVIDERS: ADMIT Surgery; ATTEND Surgery
PROC: 8E0W4CZ Robotic Assisted Procedure of Trunk Region, Percutaneous Endoscopic Approach (ICD-10-PCS; 2017-11-27)
PROC: BF11YZZ Fluoroscopy of Biliary and Pancreatic Ducts using Other Contrast (ICD-10-PCS; 2017-11-27)
PROC: 0FT44ZZ Resection of Gallbladder, Percutaneous Endoscopic Approach (ICD-10-PCS; principal; 2017-11-27 09:00)
DX: K85.10 Biliary acute pancreatitis without necrosis or infection (principal); K80.10 Calculus of gallbladder with chronic cholecystitis without obstruction; K57.30 Diverticulosis of large intestine without perforation or abscess without bleeding; F17.210 Nicotine dependence, cigarettes, uncomplicated
CPT/HCPCS: 36415; 74300; 76705; 82040; 82247; 82248; 82310; 82374; 82435; 82565; 82947; 83690; 84075; 84132; 84155; 84295; 84450; 84460; 84520; 85025; 88304; 99284; C9113; J0131; J0295; J1100; J1170; J1885; J2001; J2405; J2704; J2765; J2795; J3010; J7030; J7050; Q9967

== ENCOUNTER → 2017-11-24 | Outpatient (CLI) | payer BC ==
[~2017-11-24] MED LIST changes: +DOCU-202 PO; +ONDA4TAB9 PO; +PER PO; +TRAM-420 PO
== END ==
LOC: AMB 16:49
PROVIDERS: ATTEND Nurse Practitioner
DX: R10.9 Unspecified abdominal pain (principal)
CPT/HCPCS: A0425; A0427